=== PATIENT | female | born 2000 | race African-American/Black ===

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

== ENCOUNTER 2021-07-29 14:37 | Emergency (ER) | payer OTHER | END 2021-07-29 15:12 | disposition home or self-care (01) | LOC: ERS 14:37 | DX: Z02.79 Encounter for issue of other medical certificate (principal); U07.1 COVID-19; E03.9 Hypothyroidism, unspecified; K21.9 Gastro-esophageal reflux disease without esophagitis; N83.209 Unspecified ovarian cyst, unspecified side | CPT/HCPCS: 99282 ==

== ENCOUNTER 2021-08-18 10:13 | Outpatient (CLI) | payer OTHER ==
[2021-08-18 10:35] LABS: BHCG - Serum Negative (NEGATIVE); Pregs Control Background? CLEAR/WHITE (CLR/WHITE); Pregs Control Bar Appear? YES (CONTROL BAR)
== END 2021-08-18 10:14 | disposition home or self-care (01) ==
LOC: RAD 10:13
PROVIDERS: ATTEND Obstetrics & Gynecology
DX: N73.9 Female pelvic inflammatory disease, unspecified (principal)
CPT/HCPCS: 36415; 58340; 74740; 84703

== ENCOUNTER 2021-09-25 17:55 | Emergency (ER) | payer OTHER | END 2021-09-25 18:39 | disposition home or self-care (01) | LOC: ERS 17:55 | DX: L42 Pityriasis rosea (principal); B02.9 Zoster without complications; E03.9 Hypothyroidism, unspecified; K21.9 Gastro-esophageal reflux disease without esophagitis | CPT/HCPCS: 99282 ==

== ENCOUNTER 2022-04-02 10:26 | Emergency (ER) | payer OTHER ==
[2022-04-02] MEDS ORDERED: HYDROcodone/Acetaminophen 7.5/325 mg Tablet ONE (11:18)
== END 2022-04-02 11:23 | disposition home or self-care (01) ==
LOC: ERS 10:26
DX: K02.9 Dental caries, unspecified (principal); E03.9 Hypothyroidism, unspecified; K21.9 Gastro-esophageal reflux disease without esophagitis; K58.9 Irritable bowel syndrome, unspecified; N83.209 Unspecified ovarian cyst, unspecified side
CPT/HCPCS: 99282

== ENCOUNTER 2022-10-11 21:22 | Emergency (ER) | payer OTHER | END 2022-10-12 01:21 | disposition home or self-care (01) | LOC: ERS 21:22 | DX: L29.9 Pruritus, unspecified (principal); E03.9 Hypothyroidism, unspecified; K21.9 Gastro-esophageal reflux disease without esophagitis | CPT/HCPCS: 99282 ==

== ENCOUNTER 2023-05-13 19:04 | Emergency (ER) | payer BC, OTHER ==
[2023-05-13 20:05] LABS: Bacteria/HPF None Seen HPF (None Seen); Bilirubin Negative (Negative); Blood, Urine Negative (Negative); CAUTI Indications for Culture Dysuria,urgency,freq; Clarity Clear (Clear); Glucose, Urine (Dipstick) Normal (Negative); Ketone, Urine Negative (Negative); Leukocyte Negative Leu/uL (Negative); Nitrite Negative (Negative); Protein, Urine (Dipstick) 10 mg/dL (Neg-Trace); Specific Gravity, Urine 1.029 (1.002-1.036); WBC/HPF 0-3 HPF (0-3); pH, Urine 6.5 (5.0-9.0)
[2023-05-13 20:06] LABS: Pregnancy Test - Urine (BHCG) Negative (Negative); Pregu Control Background? CLEAR/WHITE (CLR/WHITE); Pregu Control Bar Appear? YES (CONTROL BAR); Specific Gravity 1.029 (1.002-1.036)
[2023-05-13 20:07] LABS: Urine Culture Reflex No No
[2023-05-13 20:48] LABS: #Monocytes 0.4 thou/uL (0.11-0.59); #Neutrophils 4.2 thou/uL (1.40-6.50); %Basophils 0.4 % (0.0-1.0); %Eosinophils 0.4 % (0.0-10.0); %Lymphocytes 33.7 % (21.0-51.0); %Monocytes 5.6 % (0.0-10.0); %Neutrophils 59.6 % (42.0-75.0); Hematocrit 41.4 % (36.0-47.0); Hemoglobin 13.7 g/dL (12.0-16.0); Mean Corpuscular HGB CONC 33.1 g/dL (32.0-36.0); Mean Corpuscular Hemoglobin 30.6 pg (27.0-31.0); Mean Corpuscular Volume 92.4 fl (78.0-98.0); Mean Platelet Volume 9.3 fL (7.4-10.4); Platelet Count 243 10x3/uL (130-400); RBC Distribution Width 11.9 % (11.5-14.5); Red Blood Cell (RBC) Count 4.48 mill/uL (4.20-5.40)
[2023-05-13 21:12] LABS: ALT (SGPT) 14 U/L (8-55); AST (SGOT) 18 U/L (5-34); Albumin 4.9 g/dL (3.5-5.0); Alkaline Phosphatase 96 U/L (40-110); Anion Gap 14 mmol/L (10-20); BUN (Urea Nitrogen) 12 mg/dL (7.0-18.7); Bilirubin, Total 0.3 mg/dL (0.2-1.2); Calc. Creatinine Clearance 0 mL/min (70-130); Calcium 9.6 mg/dL (7.8-10.44); Carbon Dioxide 24 mmol/L (22-29); Chloride 104 mmol/L (98-107); Estimated GFR 79; Glucose 96 mg/dL (70-105); Potassium 3.9 mmol/L (3.5-5.1); Protein, Total 7.9 g/dL (6.0-8.3); Sodium 138 mmol/L (136-145)
[2023-05-13 21:19] LABS: CellaVision Operator ID lab.sh2; Platelet Adequacy Comment Platelets Normal; RBC Morphology Within Normal Limits
[2023-05-13 21:26] LABS: Free T4 (Free Thyroxine) 0.93 ng/dL (0.70-1.48); Thyroid Stimulating Hormone 1.9455 uIU/mL (0.35-4.94)
[2023-05-14 08:57] LABS: Chlamydia by PCR, Vaginal Swab Not Detected (NotDetected); GC by PCR, Vaginal Swab Not Detected (NotDetected)
== END 2023-05-14 | disposition home or self-care (01) ==
LOC: ERS 19:04
DX: S91.101A Unspecified open wound of right great toe without damage to nail, initial encounter (principal); R42 Dizziness and giddiness; G93.2 Benign intracranial hypertension; E03.9 Hypothyroidism, unspecified; K21.9 Gastro-esophageal reflux disease without esophagitis; W26.8XXA Contact with other sharp object(s), not elsewhere classified, initial encounter
CPT/HCPCS: 36415; 70450; 80053; 81001; 81025; 84146; 84439; 84443; 84481; 85025; 87480; 87491; 87510; 87591; 87660

== ENCOUNTER 2023-09-20 09:22 | Emergency (ER) | payer BC ==
[2023-09-20 10:43] LABS: Bilirubin Negative (Negative); Blood, Urine 3+ (Negative); CAUTI Indications for Culture Dysuria,urgency,freq; Clarity Extra Turbid (Clear); Glucose, Urine (Dipstick) Normal (Negative); Ketone, Urine Negative (Negative); Leukocyte 500 Leu/uL (Negative); Nitrite Negative (Negative); Protein, Urine (Dipstick) 50 mg/dL (Neg-Trace); Specific Gravity, Urine 1.019 (1.002-1.036); Squamous Epithelial None Seen HPF (0-3); Urobilinogen Normal mg/dL (Less than 2); WBC/HPF Greater than 50 HPF (0-3); pH, Urine 6.5 (5.0-9.0)
[2023-09-20 10:50] LABS: Bacteria/HPF Rare-Few HPF (None Seen)
[2023-09-20 10:51] LABS: Urine Culture Reflex Yes Yes
[2023-09-20 12:25] LABS: Pregnancy Test - Urine (BHCG) Negative (Negative); Pregu Control Background? CLEAR/WHITE (CLR/WHITE); Pregu Control Bar Appear? YES (CONTROL BAR); Specific Gravity 1.019 (1.002-1.036)
[2023-09-20 15:34] LABS: GC by PCR, Vaginal Swab Not Detected (NotDetected)
== END 2023-09-20 10:59 | disposition home or self-care (01) ==
LOC: ERS 09:22
DX: N30.90 Cystitis, unspecified without hematuria (principal); R11.0 Nausea
CPT/HCPCS: 81001; 81025; 87086; 87480; 87510; 87591; 87660; 99283

== ENCOUNTER 2023-12-28 11:34 | Emergency (ER) | payer BC ==
[2023-12-28] MEDS ORDERED: Lidocaine 1% PF 5 ML VIAL ONE (15:13)
[2023-12-28] MEDS ORDERED: cefTRIAXone (ROCEPHIN) 500 MG VIAL ONE (15:13)
[2023-12-28 23:55] LABS: GC by PCR, Vaginal Swab Not Detected (NotDetected)
== END 2023-12-28 15:28 | disposition home or self-care (01) ==
LOC: ERS 11:34
DX: N89.8 Other specified noninflammatory disorders of vagina (principal); E03.9 Hypothyroidism, unspecified
CPT/HCPCS: 36416; 84443; 87480; 87510; 87591; 87660; 96372; 99283; J0696

== ENCOUNTER 2025-04-30 15:48 | Emergency (ER) | payer BC, SELFPAY ==
[2025-04-30] MEDS ORDERED: Ibuprofen 800 MG TAB ONE (16:22)
== END 2025-04-30 16:36 | disposition home or self-care (01) ==
LOC: ERS 15:48
DX: S06.0X0A Concussion without loss of consciousness, initial encounter (principal); W22.8XXA Striking against or struck by other objects, initial encounter
CPT/HCPCS: 99283